=== PATIENT | male | born 1945 ===

== ENCOUNTER → 2019-04-07 | Emergency (ER) | payer OTHER ==
[~2019-04-07] VITALS: Ht 152.4 cm; Wt 109.8 kg
[~2019-04-07] MED LIST: ALTACE10 MG; AVAPRO300 MG; CARVEDILOL25 MG; LEVEMIR100 UNIT/1; OMEGA 3-6-9 CO400 MG; OSTERA TABLET1 EACH
== END | disposition designated cancer center or children's hospital (05) ==
LOC: ER 08:39
DX: R18.8 Other ascites (principal); K86.89 Other specified diseases of pancreas; K92.0 Hematemesis